=== PATIENT | female | born 1970 | race Caucasian/White ===

== ENCOUNTER 2016-11-21 11:07 | Day surgery (SDC) | payer OTHER ==
[2016-11-19 11:21] LABS: HEMATOCRIT 40.6 % (36.0-48.0); HEMOGLOBIN 13.7 g/dL (12.0-16.0)
--- NOTE | ~2016-11-21 | OP ---
Record Of Operation [facility] [address] [place]. [address] NAME: SHARON RODRIGUEZ : 72 STATUS : [facility]#: [id number] AGE: 46 ADM/REG DATE : 11/21/16 MR#: [id number] REPORT SERV DATE: 11/25/16 DICTATED BY: Renata FARRELL DATE: 11/25/16 REPORT STATUS : Draft TRANSCRIBED BY: ZEE DATE: 11/25/16 DATE OF PROCEDURE: 11/21/2016 PREOPERATIVE DIAGNOSIS: Basal cell carcinoma of the right preauricular cheek at sideburn. POSTOPERATIVE DIAGNOSIS: Basal cell carcinoma of the right preauricular cheek at sideburn. NAME OF OPERATION: 1. Excision of basal cell carcinoma of the right preauricular cheek at sideburn with frozen section. 2. Surgical excisional preparation of right preauricular cheek at sideburn defect. 3. Reconstruction of right preauricular cheek defect with rotation flap closure. FINDINGS: A 1.1 cm diameter excision of the right preauricular cheek-part of sideburn; frozen section showed basal cell carcinoma, margins free of tumor. INDICATIONS: This 46-year-old female has a biopsy-proven basal cell carcinoma. She was referred to my office for definitive treatment. We discussed the pros and cons, alternatives, benefits, risks, limitations, and complications of excision with frozen section and reconstruction of this area. We discussed the risks of scarring, reaction to suture, distortion of the tissues, scarring, imponderables. She understands and wishes to proceed. Proper consent obtained. DESCRIPTION OF PROCEDURE: She was taken into the operating room and given general oral endotracheal anesthesia in supine position. The table was turned. Her hair was taped out of the field. The patient had washed with Hibiclens prior to surgery at home. The right side of her face, scalp, ear, and periauricular neck were prepped with Hibiclens and saline followed by isopropyl alcohol. None of these solutions got down in her ear canal. None of these solutions got in her eyes. Sterile drapes were applied. The tumor was outlined with a marking pen and a 2.5 mm margin of safety around this was marked out. The preauricular cheek and sideburn and the adjacent ear were injected with 1% Xylocaine with 1:100,000 epinephrine and 0.5% Marcaine with 1:200,000 epinephrine. The 12 o'clock, 3 o'clock, 6 o'clock, and 9 o'clock positions were marked with a marking pen. A #15C blade was used to circularly incised according to the markings the further most outward markings which included the margins around the tumor. Before the tumor was removed from the tumor bed, a long suture was marked at the 12 o'clock position, a short suture was placed at the 6 o'clock position. The tumor was then removed in the deep subcutaneous plane above the level of the SMAS. The pathologist was brought into the room for orientation and to perform frozen sections. Frozen sections returned showing margins free of tumor. The best reconstruction seemed to be a cheek rotation flap. The wound was first surgically excisionally prepared by removing a superior triangle of skin in the sideburn area. Wide Record Of Operation [facility] [address] [facility] [place]. [address] NAME: SHARON RODRIGUEZ : 72 STATUS : [facility]#: [id number] AGE: 46 ADM/REG DATE : 11/21/16 MR#: [id number] REPORT SERV DATE: 11/25/16 DICTATED BY: Renata FARRELL DATE: 11/25/16 REPORT STATUS : Draft TRANSCRIBED BY: ZEE DATE: 11/25/16 undermining of the cheek flap was accomplished in the layer above the level of the SMAS. This was slightly anterior in the area of the malar cheek and this extended approximately 2 cm in front of the sideburn and then approximately 6 cm in the mid and lower cheek. This flap was then rotated and secured with 3-0 Vicryl and 4-0 Vicryl. A back cut was made in the area by the tragus and this was closed with 5-0 and 4-0 Vicryl. The skin edges were coapted with 6-0 Prolene. The wounds were cleansed with hydrogen peroxide and dried. Mastisol and paper tape were applied in antitension fashion. She tolerated the procedure well. Estimated blood loss was 5 mL. She was awakened and extubated and taken to recovery room in good condition having tolerated the procedure well. DISCHARGE INSTRUCTIONS: She will recheck in six days. She is to keep the tape dry and intact. She is to finish her antibiotic, take pain medicine as necessary, and she has a prescription also for Zofran. MAD[place]/ZEE Renata Farrell M.D. / [id number] CC: Sherrell Kamara M.D.
[~2016-11-21 11:07] MED LIST: FLONASE NAS; TYLENOL COL5 PO
== END 2016-11-21 20:51 | disposition home or self-care (01) ==
LOC: SDC 11:07
PROVIDERS: Specialist
PROC: 0JR107Z Replacement of Face Subcutaneous Tissue and Fascia with Autologous Tissue Substitute, Open Approach (ICD-10-PCS; principal; 2016-11-21 12:45)
DX: C44.319 Basal cell carcinoma of skin of other parts of face (principal); H61.112 Acquired deformity of pinna, left ear; L90.5 Scar conditions and fibrosis of skin; Z98.890 Other specified postprocedural states; Z98.818 Other dental procedure status
CPT/HCPCS: 84703; 85014; 85018; 88305; 88331; C1894; J0690; J1170; J2250; J2405; J2550; J2710; J3010